=== PATIENT | male | born 1935 | race Caucasian/White ===

== ENCOUNTER 2016-12-03 21:47 | Emergency (ER) | payer MEDICARE, BC ==
[2016-12-03] MEDS ORDERED: NORMAL SALINE 1,000 ML IV ONE (22:23)
[2016-12-03] MEDS ORDERED: ONDANSETRON HCL/PF 2 MG/ML VIAL IV ONE (22:23)
[2016-12-03] MEDS ORDERED: ONDANSETRON HCL/PF 2 MG/ML VIAL ONE (22:24)
--- NOTE | 2016-12-03 22:24 | ERNOTE ---
Medical Problem HPI - General Chief Complaint: Nausea/Vomiting Time Seen by Provider: 12/03/16 22:19 Source: patient, family Exam Limitations: no limitations - Immun/Allergies/Home Medications Immunizations: IMMUNIZATION HX Immunizations Up to Date Yes History of Influenza Vaccine Yes Hx Pneumococcal Vaccination Yes Allergies/Adverse Reactions: Allergies morphine Allergy (Mild, Verified 12/03/16 22:17) Nausea Home Medications: HOME MEDICATIONS Hydrocodone/Acetaminophen [Lorcet 5-325 mg Tablet] 1 each PO Q6H PRN 09/17/14 [ Last Taken 01/16/15 08:00 1 EACH] Aspirin 81 mg PO DAILY 12/15/15 [Last Taken Unknown] Multivitamin [Poly-Vitamin] 1 each PO DAILY 12/15/15 [Last Taken Unknown] Cholestyramine/Aspartame [Cholestyramine Light Packet] 4 gm PO BID 12/03/16 [ Last Taken Unknown] - History of Present History Narrative: Pt has had pancreatic cancer for some time. Began to have N/V tonight and unable to keep anything down. Timing: getting worse Severity: moderate Modifying Factors - (Worsens): Present: eating Review of Systems - Review of Systems Constitutional: Absent: recent illness EYE: Present: no symptoms reported ENT: Present: no symptoms reported Respiratory: Present: shortness of breath - mild. Absent: cough Cardiology: Absent: chest pain Gastrointestinal/Abdominal: Present: See HPI. Absent: constipation Genitourinary: Present: no symptoms reported Musculoskeletal: Present: no symptoms reported Skin: Present: no symptoms reported Neurological: Present: no symptoms reported Endocrine: Present: no symptoms reported Hematologic/Lymphatic: Present: no symptoms reported Psych: Present: no symptoms reported - Patient's Past Medical History Patient History - Medical: Osteoarthritis, Other Patient History - Cardiac/Respiratory: Atrial Fibrillation, CPAP/BiPAP Home Use , Sleep Apnea Patient History - Cancer: Pancreatic, Other Patient History - Surgical Procedures: Appendectomy, Colonoscopy, Total Knee Replacement Patient History - Other: None - Family History Mother Family History - Medical: Family History - Cardiac/Respiratory: Myocardial Infarction Sister Family History - Medical: Family History - Cardiac/Respiratory: No pertinent hx - Social History Living Situations: home Abuse History: No History of abuse Psych History: No pertinent hx Alcohol Use: none Drug Use: none - Immunizations Immunizations Up to Date: Yes Hx Pneumococcal Vaccination: Yes History of Influenza Vaccine: Yes Physical Exam - Physical Exam General Appearance: Present: wd/wn, alert, mild distress Head Exam: Present: normal inspection, no evidence of injury Eye Exam: Normal inspection: bilateral Neck: Present: normal inspection, nontender Respiratory: Present: no respiratory distress, normal breath sounds, lungs clear Cardiovascular/Chest: Present: regular rate, rhythm, no murmur Gastrointestinal/Abdominal: Present: nondistended, soft, tenderness - minimal epigastric Back Exam: Present: normal inspection, normal range of motion Extremity Exam: Present: normal inspection, normal range of motion, no edema Neurological Exam: Present: alert, oriented, normal mood/affect Skin Exam: Present: normal color, warm/dry ED Progress - Results and Orders Patient's Lab Results:: I have reviewed the patient's lab results. Results and Orders: Laboratory Tests 12/03/16 12/03/16 22:33 22:33 WBC 4.0 Hgb 10.5 L Hct 34.1 L Plt Count 148 L Neutrophils % 75.5 H Sodium 140 Potassium 4.3 Chloride 102 Carbon Dioxide 31.2 Anion Gap 11.1 BUN 19 Creatinine 1.13 BUN/Creatinine Ratio 16.8 Random Glucose 157 H Calcium 9.5 Total Bilirubin 0.8 AST 12 ALT 14 L Alkaline Phosphatase 169 Total Protein 7.3 Albumin 3.6 Amylase 24 L Lipase 38 L - Vital Signs Patient's Vital Signs:: I have reviewed the patient's vital signs. Vital Signs: Vital Signs 12/03/16 22:04 Temperature 36.2 C L Pulse Rate 64 Blood Pressure 126/77 O2 Sat by Pulse 97 Oximetry - Progress/Reassessment Chief Complaint: Nausea/Vomiting Progress Note-Subjective: 12/03/16 23:25 IV fluids complete pt was feeling better and now vomited. IM phenergan ordered 12/03/16 23:46 Nausea resolved. Departure - Departure Clinical Impression: Pancreatic neoplasm Nausea & vomiting Qualifiers: Vomiting type: unspecified Vomiting Intractability: non-intractable Qualified Code(s): R11.2 - Nausea with vomiting, unspecified Disposition: Home Follow Up Needed Condition: Good Instructions: Nausea, Adult Additional Instructions: use ondansetron and/or phenergan as needed for nausea. discuss with your regular doctor if you continue to need medications Referrals: Bari Bethea DO [Primary Care Provider] -
[2016-12-03 22:39] LABS: Hematocrit 34.1 % (42.0-52.0); Hemoglobin 10.5 gm/dL (13.5-18.0); Mean Cell Volume 91.4 fl (78-100); Mean Corpuscular Hemoglobin 28.2 pg (27-31); Mean Corpuscular Hgb Conc 30.8 g/dl (32-36); Mean Platelet Volume 9.5 fl (6.0-9.5); Neutrophil % 75.5 % (42-75.0); Platelet Count 148 K/mm3 (150-450); Red Blood Count 3.73 M/mm3 (4.7-6.0); Red Cell Distribution Width 17.4 % (11.5-14.0)
[2016-12-03 22:59] LABS: Albumin * 3.6 gm/dl (3.4-5.0); Anion Gap 11.1 mmol/L (6.8-13.8); BUN/Creatinine Ratio 16.8 (9.0-21.6); Bilirubin, Total 0.8 mg/dL (0.0-1.1); Ca. Corrected For Albumin 9.5 mg/dL (8.4-10.2); Calcium * 9.5 mg/dL (7.9-10.9); Carbon Dioxide 31.2 mmol/L (24-32.6); Potassium 4.3 mmol/L (3.4-4.6); Total Protein 7.3 gm/dL (6.2-8.2)
[2016-12-03] MEDS ORDERED: PROMETHAZINE HCL 25 MG/ML AMPUL ONE (23:25)
[2016-12-03] MEDS ORDERED: PROMETHAZINE HCL 25 MG/ML AMPUL IM ONE (23:25)
[2016-12-03] MEDS ORDERED: PROMETHAZINE HCL 25 MG TABLET ONE (23:57)
[2016-12-03] MEDS ORDERED: ONDANSETRON 4 MG TAB.RAPDIS ONE (23:57)
[2016-12-04] MEDS: ONDANSETRON 4 MG TAB.RAPDIS PO ONE ×2 (00:01→00:07)
[2016-12-04] MEDS ORDERED: MECLIZINE HCL 25 MG TABLET PO ONE (00:01)
[2016-12-04] MEDS: PROMETHAZINE HCL 25 MG TABLET PO ONE ×2 (00:01→00:08)
[2016-12-04] MEDS ORDERED: MECLIZINE HCL 25 MG TABLET ONE (00:02)
[2016-12-04 00:11] VITALS: BP 130/74
== END 2016-12-04 00:16 | disposition home or self-care (01) ==
LOC: ER 21:47
DX: D49.0 Neoplasm of unspecified behavior of digestive system (principal); R11.2 Nausea with vomiting, unspecified; M19.90 Unspecified osteoarthritis, unspecified site; I48.91 Unspecified atrial fibrillation; Z79.01 Long term (current) use of anticoagulants
CPT/HCPCS: 36415; 80053; 82150; 83690; 85025; 96372; 96374; 99284; J2405

== ENCOUNTER 2017-02-12 07:34 | Day surgery (SDC) | payer MEDICARE, BC ==
[2017-02-12] MEDS: RINGER'S SOLUTION,LACTATED 1,000 ML IV PRN ×2 (08:10→08:20)
[2017-02-12] MEDS: GENTAMICIN SULFATE 80 MG in DEXTROSE 5 % IN WATER 100 ML IV PRN ×2 (08:18)
[2017-02-12] MEDS ORDERED: LIDOCAINE HCL 10 APPL CARTRIDGE TP ONE (08:30)
[2017-02-12 09:52] VITALS: BP 106/56
== END 2017-02-12 07:35 | disposition home or self-care (01) ==
LOC: AMB 07:34
PROVIDERS: ATTEND Urology
PROC: 3E1K88X Irrigation of Genitourinary Tract using Irrigating Substance, Via Natural or Artificial Opening Endoscopic, Diagnostic (ICD-10-PCS; 2017-02-12)
PROC: 0TJB8ZZ Inspection of Bladder, Via Natural or Artificial Opening Endoscopic (ICD-10-PCS; principal; 2017-02-12 08:30)
DX: N40.1 Benign prostatic hyperplasia with lower urinary tract symptoms (principal); R33.8 Other retention of urine; N39.0 Urinary tract infection, site not specified; Z68.26 Body mass index [BMI] 26.0-26.9, adult

== ENCOUNTER 2017-03-08 11:57 | Emergency (ER) | payer MEDICARE, BC ==
--- NOTE | 2017-03-08 12:18 | ERNOTE ---
Abdominal HPI - Narrative Date of Service: 03/08/17 - General Chief Complaint: Constipation Time Seen by Provider: 03/08/17 12:10 Source: patient, family, RN notes reviewed Exam Limitations: no limitations - Immun/Allergies/Home Medications Immunizatons: IMMUNIZATION HX Immunizations Up to Date Yes History of Influenza Vaccine Yes Hx Pneumococcal Vaccination Yes Allergies/Adverse Reactions: Allergies morphine Adverse Reaction (Mild, Verified 03/08/17 12:07) Nausea Home Medications: HOME MEDICATIONS Hydrocodone/Acetaminophen [Lorcet 5-325 mg Tablet] 1 each PO Q8H PRN 09/17/14 [ Last Taken 01/16/15 08:00 1 EACH] Aspirin [Aspirin Enteric Coated] 81 mg PO DAILY 02/11/17 [Last Taken Unknown] Finasteride [Proscar] 5 mg PO DAILY 02/11/17 [Last Taken Unknown] Lipase/Protease/Amylase [Zenpep Dr 40,000 Units Capsule] 1 each PO BID 02/11/17 [Last Taken Unknown] Octreotide Acetate,Mi-Spheres [Sandostatin Lar Depot] 30 mg IM Q28D 02/11/17 [ Last Taken Unknown] Tamsulosin HCl [Flomax] 0.4 mg PO HS 02/11/17 [Last Taken Unknown] Octreotide Acetate,Mi-Spheres [Sandostatin Lar Depot] 60 mg IM Q30D 02/12/17 [ Last Taken 01/26/17] metroNIDAZOLE [Metronidazole 0.75% Cream] 1 appl TP DAILY 02/12/17 [Last Taken Unknown] Polyethylene Glycol 3350 [Miralax] 17 gm PO DAILY 03/08/17 [Last Taken Unknown] - History of Present Illness Narrative: 81 y/o male presents to the ED with his for constipation. He has pancreatic cancer and chronic problems with constipation. He took magnesium citrate 4 days ago with good results. He has not had a bowel movement since. He reports bloating and mild lower abdominal pain. He has not had any nausea or vomiting. His oral intake has been good, but his is concerned because he continues to lose weight. They are also concerned about increased swelling in his lower legs and feet. Associated Symptoms: Present: fatigue. Absent: fever/chills, nausea, vomiting, shortness of breath, weakness Prior Abdominal Problems: Present: similar symptoms Prior Treatment: Present: recently seen - Oncology at [facility] Review of Systems - Review of Systems Constitutional: Present: See HPI EYE: Present: no symptoms reported ENT: Present: no symptoms reported Respiratory: Absent: shortness of breath, cough Cardiology: Present: edema. Absent: chest pain, palpitations Gastrointestinal/Abdominal: Present: See HPI Genitourinary: Absent: dysuria, decreased urinary output Musculoskeletal: Absent: back pain, joint swelling Skin: Absent: rash, lesions, lumps Neurological: Absent: headache, dizziness/light-headedness Endocrine: Present: no symptoms reported Hematologic/Lymphatic: Present: no symptoms reported Psych: Present: no symptoms reported - Patient's Past Medical History Patient History - Medical: Anemia, Other - BPH, Spinal stenosis Patient History - Cardiac/Respiratory: No pertinent hx Patient History - Cancer: Pancreatic, Metastatic Patient History - Surgical Procedures: Appendectomy, Colonoscopy, EGD, Total Knee Replacement, Hernia Repair Patient History - Other: Immunosuppresive Tx >3mo - Family History Mother Family History - Medical: Family History - Cardiac/Respiratory: Myocardial Infarction Sister Family History - Medical: Family History - Cardiac/Respiratory: No pertinent hx - Social History Living Situations: spouse Abuse History: No History of abuse Psych History: No pertinent hx Smoking Status: Never smoker Alcohol Use: none Drug Use: none - Immunizations Immunizations Up to Date: Yes Hx Pneumococcal Vaccination: Yes History of Influenza Vaccine: Yes Physical Exam - Physical Exam General Appearance: Present: wd/wn, alert, no apparent distress, other - Appears fatigued Neck: Present: normal inspection, nontender, supple Respiratory: Present: no respiratory distress, normal breath sounds, no accessory muscle use, lungs clear Cardiovascular/Chest: Present: regular rate, rhythm, no murmur Gastrointestinal/Abdominal: Present: normal bowel sounds, soft, tenderness - Mild, LLQ, distended Extremity Exam: Present: non-tender, normal range of motion, pedal edema Neurological Exam: Present: alert, oriented, normal mood/affect, no motor/ sensory deficits Skin Exam: Present: warm/dry, pallor ED Progress - Results and Orders Patient's Lab Results:: I have reviewed the patient's lab results. - Vital Signs Patient's Vital Signs:: I have reviewed the patient's vital signs. Vital Signs: Vital Signs 03/08/17 12:01 Temperature 36.6 C Pulse Rate 58 L Respiratory 16 Rate Blood Pressure 107/47 O2 Sat by Pulse 97 Oximetry - X-Ray X-Ray #1 X-Ray: abdomen Interpretation: Reviewed by me X-ray Comments: IMPRESSION: 1. Abnormal but nonspecific bowel gas pattern. Air-fluid levels within small and large bowel segments could be due to underlying ileus. Less likely to represent mechanical obstruction but cannot be entirely excluded. 2. Calcification associated with previously noted pancreatic mass in the upper abdomen. Electronically signed by Jackson Sandoval M.D.. - CT/Ultrasound CT/Ultrasound Narrative: CT abdomen/pelvis shows no evidence of intestinal obstruction. See report for other findings r/t the pancreatic mass, seems stable compared to report from CT at [facility] last month (reviewed by me) - Progress/Reassessment Chief Complaint: Constipation Progress:: Unchanged Plan - Plan Plan: Abdominal xray did not demonstrate constipation but was concerning for obstruction so a CT was done which ruled this out. Discussed further treatment of constipation with the patient and his and that he may not have a bowel movement for several days following the large results he had after taking the mag citrate a few days ago. The patient is very preoccupied with his weight loss as of late and asks numerous questions about diet and how to stop this. He does not seem to accept that this will likely be an ongoing process. Discussed indications for needing to return - worsening pain, vomiting, fever, etc. Patient and agreeable to plan. Departure Clinical Impression: Abdominal bloating, Pancreatic neoplasm - Departure Disposition: Home Follow Up Needed Condition: Stable Additional Instructions: Continue trying to eat as much as you can - smaller, more frequent meals may be better tolerated Continue your current medications Return for worsening abdominal pain, worsening bloating, or vomiting Referrals: Bari Bethea, [Primary Care Provider] -
[2017-03-08] MEDS ORDERED: DIATRIZOATE MEGLUMINE, SODIUM 30 ML BTL PO ONE (13:09)
[2017-03-08] MEDS ORDERED: DIATRIZOATE MEGLUMINE, SODIUM 30 ML BTL ONE (13:15)
[2017-03-08 13:27] LABS: Hematocrit 30.4 % (42.0-52.0); Hemoglobin 9.5 gm/dL (13.5-18.0); Mean Corpuscular Hemoglobin 29.1 pg (27-31); Mean Corpuscular Hgb Conc 31.3 g/dl (32-36); Mean Platelet Volume 9.6 fl (6.0-9.5); Neutrophil # 2.3 K/mm3 (1.3-6.0); Neutrophil % 63.2 % (42-75.0); Platelet Count 130 K/mm3 (150-450); Red Blood Count 3.27 M/mm3 (4.7-6.0); Red Cell Distribution Width 17.8 % (11.5-14.0); White Blood Count 3.6 K/mm3 (4.0-10.5)
[2017-03-08 13:38] LABS: Albumin * 3.5 gm/dl (3.4-5.0); Anion Gap 13.1 mmol/L (6.8-13.8); BUN/Creatinine Ratio 16.1 (9.0-21.6); Bilirubin, Total 0.6 mg/dL (0.0-1.1); Ca. Corrected For Albumin 10.8 mg/dL (8.4-10.2); Calcium * 10.7 mg/dL (7.9-10.9); Carbon Dioxide 29.9 mmol/L (24-32.6); Total Protein 7.2 gm/dL (6.2-8.2)
[2017-03-08 16:25] VITALS: BP 128/54
== END 2017-03-08 16:23 | disposition home or self-care (01) ==
LOC: ER 11:57
DX: R14.0 Abdominal distension (gaseous) (principal); D49.0 Neoplasm of unspecified behavior of digestive system

== ENCOUNTER 2017-06-16 09:50 | Emergency (ER) | payer MEDICARE, BC ==
--- NOTE | 2017-06-16 10:51 | ERNOTE ---
Medical Problem HPI - Narrative Date of Service: 06/16/17 - General Chief Complaint: General Assessment Time Seen by Provider: 06/16/17 10:08 Source: patient Exam Limitations: no limitations - Immun/Allergies/Home Medications Immunizations: IMMUNIZATION HX Immunizations Up to Date Yes History of Influenza Vaccine Yes Hx Pneumococcal Vaccination Yes Allergies/Adverse Reactions: Allergies morphine Adverse Reaction (Mild, Verified 03/08/17 12:07) Nausea Sulfa (Sulfonamide Antibiotics) Adverse Reaction (Verified 06/16/17 10:07) Home Medications: HOME MEDICATIONS Hydrocodone/Acetaminophen [Lorcet 5-325 mg Tablet] 1 each PO Q8H PRN 09/17/14 [ Last Taken 01/16/15 08:00 1 EACH] Aspirin [Aspirin Enteric Coated] 81 mg PO DAILY 02/11/17 [Last Taken Unknown] Finasteride [Proscar] 5 mg PO DAILY 02/11/17 [Last Taken Unknown] Lipase/Protease/Amylase [Zenpep Dr 40,000 Units Capsule] 1 each PO BID 02/11/17 [Last Taken Unknown] Octreotide Acetate,Mi-Spheres [Sandostatin Lar Depot] 30 mg IM Q28D 02/11/17 [ Last Taken Unknown] Tamsulosin HCl [Flomax] 0.4 mg PO HS 02/11/17 [Last Taken Unknown] Octreotide Acetate,Mi-Spheres [Sandostatin Lar Depot] 60 mg IM Q30D 02/12/17 [ Last Taken 01/26/17] metroNIDAZOLE [Metronidazole 0.75% Cream] 1 appl TP DAILY 02/12/17 [Last Taken Unknown] Polyethylene Glycol 3350 [Miralax] 17 gm PO DAILY 03/08/17 [Last Taken Unknown] - History of Present History Narrative: Pt. comes in with c/o hypercalcemia. 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 Pt. denies any acute symptoms but states taht for the past 3-4 weeks the patient has been having increasing fatigue and malaise, and for the past few years he has had problems with alternating dumping syndrome and constipation. Pt. also states that he has had a wet cough for three weeks. Pt. denies any CP, NVD, decreased appetite, fevers,or alleviating factors but states that activity aggravates the symptoms. Timing: intermittent Severity: moderate Modifying Factors - (Improves): Present: rest Modifying Factors - (Worsens): Present: other - activity Review of Systems - Review of Systems Constitutional: Present: weakness, fatigue, malaise. Absent: fever, chills EYE: Present: no symptoms reported ENT: Present: no symptoms reported. Absent: nose pain, nose congestion, nasal drainage, throat swelling Respiratory: Present: cough. Absent: shortness of breath, orthopnea, wheezing Cardiology: Present: no symptoms reported. Absent: chest pain, palpitations, edema Gastrointestinal/Abdominal: Present: no symptoms reported. Absent: nausea, vomiting, diarrhea, abdominal pain Genitourinary: Present: no symptoms reported. Absent: frequency, decreased urinary output Musculoskeletal: Present: no symptoms reported. Absent: back pain, joint pain Skin: Present: no symptoms reported. Absent: rash, change in hair/nails Neurological: Present: no symptoms reported. Absent: headache, dizziness/light- headedness, numbness, tingling Endocrine: Present: no symptoms reported Hematologic/Lymphatic: Present: no symptoms reported Psych: Present: no symptoms reported All Other Systems: All systems neg except as marked - Patient's Past Medical History Patient History - Medical: Anemia Patient History - Cardiac/Respiratory: Atrial Fibrillation Patient History - Cancer: Liver, Lung, Pancreatic, Metastatic, Other - neuroendocrine Patient History - Surgical Procedures: Appendectomy, Colonoscopy, EGD, Total Knee Replacement, Hernia Repair Patient History - Other: Immunosuppresive Tx >3mo - Family History Mother Family History - Medical: Family History - Cardiac/Respiratory: Myocardial Infarction Sister Family History - Medical: Family History - Cardiac/Respiratory: No pertinent hx - Social History Living Situations: home Abuse History: No History of abuse Psych History: No pertinent hx Smoking Status: Never smoker Alcohol Use: none Drug Use: none - Immunizations Immunizations Up to Date: Yes Hx Pneumococcal Vaccination: Yes History of Influenza Vaccine: Yes Physical Exam - Physical Exam General Appearance: Present: wd/wn, alert, no apparent distress Head Exam: Present: normal inspection, no evidence of injury Eye Exam: Normal inspection: bilateral Ears, Nose, Throat: Present: normal ENT inspection, normal pharynx. Absent: dry mucous membranes Neck: Present: normal inspection, nontender, supple, full range of motion. Absent: lymphadenopathy (R), lymphadenopathy (L) Respiratory: Present: no respiratory distress, no accessory muscle use, chest nontender, crackles - course RML RLL Cardiovascular/Chest: Present: regular rate, rhythm, no murmur, normal peripheral pulses Gastrointestinal/Abdominal: Present: normal bowel sounds, nontender, nondistended, soft, no organomegaly Back Exam: Present: normal inspection Extremity Exam: Present: normal inspection Neurological Exam: Present: alert, oriented, normal mood/affect, no motor/ sensory deficits, supervisor hardboard II-XII nml as tested, normal cerebellar test Skin Exam: Present: normal color, warm/dry. Absent: pallor, skin rash ED Progress - Date and Time Seen: Date and Time: 06/16/17 10:[address] Garcia pt. oncologist and she states taht the stated that pt. was having increasing fatigue as an acute problem and was unable to care for self and that they sis not want to come to [facility] so would like pt. to get hydration in the ER and could have Zomeda injection tomorrow if we are not able to get it here and get labs rechecked after this. 06/16/17 12:06 Pt. with HR in 40s and 50s during visit but on review of chart noted HR in 40s and 50s as trend for pt. on severeal occasions. Pt. denies symptoms with this so feel safe discharging him to home to follow up with his automatic maintainer tomorrow and his oncologist next week. Pt. will be set up by his oncologist for repeat labs next week. - Results and Orders Patient's Lab Results:: I have reviewed the patient's lab results. - Vital Signs Patient's Vital Signs:: I have reviewed the patient's vital signs. Vital Signs: Vital Signs 06/16/17 10:00 Temperature 37.1 C Pulse Rate 61 Respiratory 16 Rate Blood Pressure 95/52 O2 Sat by Pulse 97 Oximetry - EKG EKG: atrial fibrillation, other - Slow ventricular response, Septal T wave changes, Left axis deviation, IVCD EKG read: Interp. by me - X-Ray X-Ray #1 X-Ray: chest Interpretation: Reviewed by me X-ray Comments: No acute process. Stable cardiomegaly. - Progress/Reassessment Chief Complaint: General Assessment Progress:: Unchanged Departure Clinical Impression: Hypercalcemia - Departure Disposition: Home Follow Up Needed Condition: Fair Instructions: Hypercalcemia Additional Instructions: Please follow up with Dr cabezas tomorrow as planned. Please go straight [facility] for your Zomeda treatment and then will get blood drawn directly after this treatment. Please follow up with Oncologist as planned.
[2017-06-16] MEDS: NORMAL SALINE 2,000 ML IV ONE (11:48)
[2017-06-17 09:16] VITALS: BP 117/59
== END 2017-06-16 13:37 | disposition home or self-care (01) ==
LOC: ER 09:50
DX: Z85.118 Personal history of other malignant neoplasm of bronchus and lung; E83.52 Hypercalcemia; Z85.05 Personal history of malignant neoplasm of liver; Z85.07 Personal history of malignant neoplasm of pancreas